=== PATIENT | female | born 1955 | race Caucasian/White ===

== ENCOUNTER 2016-10-20 08:27 | Emergency (ER) | payer BC ==
[2016-10-20 08:59] VITALS: BP 115/62
[2016-10-20] MEDS ORDERED: Nitrofurantoin Macrocrystals* 50 MG CAP PO ONE (09:13)
--- NOTE | 2016-10-20 09:13 | UC ---
Complaint Female HPI - History Of Current Complaint Stated Complaint: URINARY Time Seen by Provider: 10/20/16 08:34 Hx Obtained From: Patient Onset/Duration: Gradual Onset, Lasting Days - 2, Worse Since - this morning with blood in the urine. Timing: Constant Severity Initially: Mild Severity Currently: Moderate Character: Burning, Cramping Aggravating Factor(s): Urination Alleviating Factor(s): Meds - Azo Associated Signs And Symptoms: Positive: Negative Related Hx: - 7, Para - 6 - Allergies/Home Medications Allergies/Adverse Reactions: Allergies Allergy/AdvReac Type Severity Reaction Status Date / Time Penicillins Allergy Hives Verified 10/20/16 08:40 Sulfa Antibiotics Allergy Rash Verified 10/20/16 08:40 Home Medications: Home Medications Allopurinol TAB* [Zyloprim 300 MG TAB*] 300 mg PO DAILY 10/20/16 [History Confirmed 10/20/16] Levothyroxine TAB* [Synthroid 150 MCG TAB*] 150 mcg PO DAILY 10/20/16 [History Confirmed 10/20/16] Topiramate [Topamax 100 mg tab] 100 mg PO BID 10/20/16 [History Confirmed ] Valsartan/HCTZ 80/12.5(NF) [Diovan Hct 80/12.5(NF)] 1 tab PO DAILY 10/20/16 [ History Confirmed 10/20/16] PMH/Surg Hx/FS Hx/Imm Hx Endocrine History: Hypothyroidism Cardiovascular History: Hypertension Neurological History: Seizures - Surgical History Surgical History: Yes Surgery Procedure, Year, and Place: hysterectomy. ex lap- abd- appy. 2 other abd surgeries due to adhesions and bleeding. - Family History Known Family History: Positive: Cardiac Disease, Hypertension - Social History Occupation: Employed Full-time Lives: With Family Alcohol Use: None Substance Use Type: None Smoking Status (MU): Never Smoked Tobacco Have You Smoked in the Last Year: No Review of Systems Genitourinary: Dysuria, Hematuria, Frequency, Urgency All Other Systems Reviewed And Are Negative: Yes Physical Exam Triage Information Reviewed: Yes Appearance: Well-Appearing, No Pain Distress, Well-Nourished Vital Signs: Initial Vital Signs Temp 98 F 10/20/16 08:43 Pulse 77 10/20/16 08:43 Resp 16 10/20/16 08:43 BP 115/62 10/20/16 08:43 Pulse Ox 97 10/20/16 08:43 Vital Signs Reviewed: Yes Eyes: Positive: Conjunctiva Clear Neck exam: Normal Neck: Positive: Supple Respiratory Exam: Normal Cardiovascular Exam: Normal Abdomen Description: Negative: Nontender - suprapubic, CVA Tenderness (R), CVA Tenderness (L) Musculoskeletal Exam: Normal Neurological Exam: Normal Psychological Exam: Normal Skin Exam: Normal Complaint Female Dx - Differential Dx/Diagnosis Differential Diagnosis/HQI/PQRI: Appendicitis, Ureteral Stone, Urinary Tract Infection Provider Diagnoses: Acute hemorrhagic cystitis Discharge - Discharge Plan Condition: Stable Disposition: HOME Prescriptions: Nitrofurantoin Monohyd Macro [Macrobid] 100 mg PO BID #14 cap Phenazopyridine 200 mg (NF) [Pyridium 200 MG tab] 200 mg PO TID PRN #6 tab PRN Reason: urine symptoms Patient Education Materials: Urinary Tract Infection in Women (ED), Nitrofurantoin Combination (By mouth), Phenazopyridine (By mouth)
[2016-10-20 14:53] LABS: Urine Bacteria 1+ (Absent); Urine Bilirubin Negative (Negative); Urine Glucose Negative (Negative); Urine Nitrite Positive (Negative)
== END 2016-10-20 09:27 | disposition home or self-care (01) ==
LOC: UCCORT 08:27
DX: N30.01 Acute cystitis with hematuria (principal); E03.9 Hypothyroidism, unspecified; I10 Essential (primary) hypertension
CPT/HCPCS: 81003; 81015; 87086; 99202; A9270-GY; G0463